=== PATIENT | female | born 1935 | race Caucasian/White ===

== ENCOUNTER 2019-09-16 03:04 | Inpatient (IN) | payer MEDICARE, MEDICAID ==
[~2019-09-16] VITALS: Ht 160 cm; Wt 90.9 kg
[2019-09-16] MEDS ORDERED: normal saline 1000ML IV soln IVB ONE (03:10)
[2019-09-16 03:32] LABS: PARTIAL THROMBOPLASTIN TIME 22 SECONDS (22-32)
[2019-09-16 03:35] LABS: ALANINE AMINOTRANSFERASE 14 U/L (12-78); ALBUMIN 3.4 G/DL (3.4-5.0); ALBUMIN/GLOBULIN RATIO 0.9 (1.1-1.5); ALKALINE PHOSPHATASE 107 IU/L (46-116); ANION GAP 11 (8-16); ASPARTATE AMINO TRANSFERASE 14 U/L (10-37); BILIRUBIN,TOTAL 0.3 MG/DL (0.1-1.0); BLOOD UREA NITROGEN 13 MG/DL (7-18); BUN/CREATININE RATIO 14.6 (6.6-38.0); CALCIUM 8.8 MG/DL (8.5-10.1); CHLORIDE 101 MMOL/L (99-107); CREATININE 0.89 MG/DL (0.40-0.90); GLUCOSE 177 MG/DL (70-104); SODIUM 136 MMOL/L (135-145); TOTAL CARBON DIOXIDE 24.2 MMOL/L (24-32); TOTAL PROTEIN 7.1 G/DL (6.4-8.2); eGFR 61 ML/MIN
[2019-09-16 03:38] LABS: ETHANOL < 0.010 GM/DL (0.0-0.010); TROPONIN I < 0.04 NG/ML (0.0-0.05)
[2019-09-16 03:43] LABS: CLARITY,URINE CLEAR (Clear); COLOR,URINE YELLOW (Yellow); GLUCOSE, URINE NEGATIVE (Neg); KETONES,URINE NEGATIVE (Neg); LEUKOCYTE ESTERASE ,URINE NEGATIVE (Neg); NITRITES, URINE NEGATIVE (Neg); OCCULT BLOOD,URINE NEGATIVE (Neg); PROTEIN,URINE NEGATIVE (Neg); UROBILINOGEN,URINE 0.2 E.U/dL (0.2-1.0)
[2019-09-16 03:44] LABS: BASOPHILS # (AUTO) 0.1 X10'3 (0-0.2); BASOPHILS % (AUTO) 0.5 % (0-1); EOSINOPHILS # (AUTO) 0.4 X10'3 (0-0.9); HEMATOCRIT 41.2 % (35.0-45.0); HEMOGLOBIN 13.1 g/dl (12.0-16.0); LYMPHOCYTES # (AUTO) 5.8 X10'3 (1.1-4.8); LYMPHOCYTES % (AUTO) 42.6 % (21-51); MEAN CORPUSCULAR HGB CONC 31.7 g/dL (33.0-36.5); MEAN CORPUSCULAR VOLUME 81.8 FL (78-98); MEAN PLATELET VOLUME 8.1 FL (7.4-10.4); MONOCYTES # (AUTO) 1.1 X10'3 (0-0.9); MONOCYTES % (AUTO) 8.2 % (2-12); NEUTROPHILS # (AUTO) 6.3 X10'3 (1.8-7.7); NEUTROPHILS % (AUTO) 45.7 % (42-75); PLATELET COUNT 363 X10'3 (140-440); RED BLOOD COUNT 5.03 X10'6 (4.20-5.60); RED CELL DISTRIBUTION WIDTH 14.9 % (11.5-14.5); WHITE BLOOD COUNT 13.7 X10'3 (4.5-11.0)
[2019-09-16 03:51] LABS: URINE AMPHETAMINE SCREEN NEGATIVE (Neg); URINE BARBITUATE SCREEN NEGATIVE (Neg); URINE BENZODIAZEPINES SCREEN NEGATIVE (Neg); URINE CANNABINOID SCREEN NEGATIVE (Neg); URINE COCAINE SCREEN NEGATIVE (Neg); URINE METHADONE SCREEN NEGATIVE (Neg); URINE OPIATE SCREEN NEGATIVE (Neg); URINE PHENCYCLIDINE SCREEN NEGATIVE (Neg)
[2019-09-16 03:56] LABS: LACTIC SEPSIS 3.2 MMOL/L (0.4-2.0)
[2019-09-16 03:59] LABS: AMMONIA < 10 UMOL/L (11-32)
[2019-09-16 04:07] LABS: UA COLLECTION TYPE STRAIGHT CATH
[2019-09-16] MEDS ORDERED: normal saline 1000ML IV soln IV ONE (04:10)
--- NOTE | 2019-09-16 04:20 | NUR ---
verified fluid of 3 Liters with MD and he stated he wants 3 L NS.
[2019-09-16] MEDS ORDERED: INSU100I31 SQ (04:31)
[2019-09-16] MEDS ORDERED: HUM7525 SQ (04:31)
[2019-09-16] MEDS ORDERED: DOXY-135 PO (04:31)
[2019-09-16] MEDS ORDERED: ENAL20TA75 PO (04:31)
[2019-09-16] MEDS ORDERED: AMLO-94 PO (04:31)
[2019-09-16] MEDS ORDERED: LEVO50TA8 PO (04:31)
[2019-09-16] MEDS ORDERED: EFF25T PO (04:31)
[2019-09-16] MEDS ORDERED: QUET25TA PO (04:31)
[2019-09-16] MEDS ORDERED: SIMV20TA PO (04:31)
[2019-09-16] MEDS ORDERED: MONT10TA26 PO (04:31)
[2019-09-16] MEDS ORDERED: METF500T PO (04:31)
[2019-09-16] MEDS ORDERED: MAGN400C PO (04:31)
--- NOTE | 2019-09-16 04:37 | NUR ---
PLACED PT ON BEDPAN
--- NOTE | 2019-09-16 05:19 | NUR ---
pt voided about 400 mls
[2019-09-16] MEDS ORDERED: ondansetron/PF 4mg/2ml inj IV PRN (06:05)
[2019-09-16] MEDS ORDERED: MESSAGE TO PHARMACY PO ONE (06:05)
[2019-09-16] MEDS ORDERED: mag hydrox/Alum hydrox/simeth 30ml oral suspension PO PRN (06:05)
[2019-09-16] MEDS ORDERED: dextrose 50%-water 50ml dispensing syringe IV PRN ×2 (06:05)
[2019-09-16] MEDS ORDERED: glucagon, human recombinant 1mg kit SUBCUT PRN (06:05)
[2019-09-16] MEDS ORDERED: magnesium hydroxide 30ml (MOM) UD suspension PO PRN (06:05)
[2019-09-16] MEDS ORDERED: acetaminophen 325mg tablet PO PRN (06:05)
[2019-09-16] MEDS ORDERED: dextrose ORAL solution 15 GM/59 ML bottle PO PRN ×2 (06:05)
[2019-09-16] MEDS: normal saline 1000ml 1,000 ML IV SCH (06:31)
[2019-09-16 06:56] LABS: HEMOGLOBIN A1C 6.8 % (4.5-6.2)
[2019-09-16 07:30] VITALS: BP 129/55
--- NOTE | 2019-09-16 07:30 | NUR ---
Patient in room [facility]. I have received report from DENITA VALENZUELA and had the opportunity to ask questions and assume patient care.
[2019-09-16] MEDS: levoTHYROXINE 25mcg tablet PO SCH (08:00)
[2019-09-16] MEDS: montelukast 10mg tablet PO SCH (08:00)
[2019-09-16] MEDS: heparin, porcine 5000 units/ml vial SQ SCH ×2 (08:01→20:04)
--- NOTE | 2019-09-16 09:45 | NUR ---
Notified NICOLAS Warner, of [facility] report pt had 4-beat run PVCs.
--- NOTE | 2019-09-16 10:00 | NUR ---
Problems reprioritized. Patient report given, questions answered & plan of care reviewed with BUFFY VALENZUELA.
[2019-09-16 12:03] VITALS: BP 138/66
[2019-09-16] MEDS ORDERED: AMLO10TA13 PO (13:20)
[2019-09-16] MEDS: insulin Lispro (HumaLOG) vial - multi-dose SQ SCH ×3 (14:00→21:20)
[2019-09-16 18:00] VITALS: BP 103/68
--- NOTE | 2019-09-16 19:55 | NUR ---
pt is unable to answer admit questions. Addendum: 09/16/19 at 6 by Max Ronquillo RN Amended: Links added.
[2019-09-16] MEDS: atorvastatin 20mg tablet PO SCH (20:04)
[2019-09-16] MEDS: venlafaxine XR 75mg capsule (Q24H) PO SCH (20:04)
[2019-09-17] VITALS: BP 142/75
[2019-09-17] MEDS: normal saline 1000ml 1,000 ML IV SCH ×2 (02:49→22:03)
[2019-09-17 04:55] LABS: BASOPHILS # (AUTO) 0.1 X10'3 (0-0.2); BASOPHILS % (AUTO) 0.5 % (0-1); EOSINOPHILS # (AUTO) 0.2 X10'3 (0-0.9); EOSINOPHILS % (AUTO) 2.5 % (0-6); HEMATOCRIT 35.9 % (35.0-45.0); HEMOGLOBIN 11.5 g/dl (12.0-16.0); LYMPHOCYTES # (AUTO) 3.8 X10'3 (1.1-4.8); LYMPHOCYTES % (AUTO) 38.1 % (21-51); MEAN CORPUSCULAR HEMOGLOBIN 26.5 PG (27.0-31.0); MEAN CORPUSCULAR VOLUME 82.6 FL (78-98); MEAN PLATELET VOLUME 7.7 FL (7.4-10.4); MONOCYTES # (AUTO) 0.9 X10'3 (0-0.9); MONOCYTES % (AUTO) 8.7 % (2-12); NEUTROPHILS % (AUTO) 50.2 % (42-75); PLATELET COUNT 343 X10'3 (140-440); RED BLOOD COUNT 4.34 X10'6 (4.20-5.60); WHITE BLOOD COUNT 9.9 X10'3 (4.5-11.0)
[2019-09-17 05:05] LABS: ALANINE AMINOTRANSFERASE 11 U/L (12-78); ALBUMIN 2.9 G/DL (3.4-5.0); ALBUMIN/GLOBULIN RATIO 0.9 (1.1-1.5); ALKALINE PHOSPHATASE 80 IU/L (46-116); ANION GAP 6 (8-16); ASPARTATE AMINO TRANSFERASE 13 U/L (10-37); BILIRUBIN,TOTAL 0.3 MG/DL (0.1-1.0); BLOOD UREA NITROGEN 6 MG/DL (7-18); CHLORIDE 107 MMOL/L (99-107); CREATININE 0.75 MG/DL (0.40-0.90); GLUCOSE 167 MG/DL (70-104); SODIUM 141 MMOL/L (135-145); eGFR 74 ML/MIN
--- NOTE | 2019-09-17 06:38 | NUR ---
Problems reprioritized. Patient report given, questions answered & plan of care reviewed with NICOLAS Kenyon.
[2019-09-17 07:00] VITALS: BP 147/69
[2019-09-17] MEDS: montelukast 10mg tablet PO SCH (08:09)
[2019-09-17] MEDS: heparin, porcine 5000 units/ml vial SQ SCH ×2 (08:10→20:38)
[2019-09-17] MEDS: levoTHYROXINE 25mcg tablet PO SCH (08:10)
[2019-09-17] MEDS: insulin Lispro (HumaLOG) vial - multi-dose SQ SCH ×3 (09:29→19:31)
--- NOTE | 2019-09-17 09:56 | NUR ---
DM consult: Pt with A1c 6.8%, DM education not warranted at this time. Will continue to follow. Addendum: 09/17/19 at [address] Amended: Links added.
[2019-09-17 11:00] VITALS: BP 147/69
[2019-09-17 18:00] VITALS: BP 160/55
--- NOTE | 2019-09-17 18:47 | NUR ---
Problems reprioritized. Patient report given, questions answered & plan of care reviewed with Prudence RN.
[2019-09-17] MEDS: atorvastatin 20mg tablet PO SCH (20:38)
[2019-09-17] MEDS: venlafaxine XR 75mg capsule (Q24H) PO SCH (20:38)
[2019-09-17] MEDS ORDERED: insulin glargine (Lantus) pen - multi-dose SQ SCH (23:00)
[2019-09-18 05:13] LABS: BASOPHILS # (AUTO) 0.1 X10'3 (0-0.2); BASOPHILS % (AUTO) 0.5 % (0-1); EOSINOPHILS # (AUTO) 0.3 X10'3 (0-0.9); EOSINOPHILS % (AUTO) 3.2 % (0-6); HEMATOCRIT 37.8 % (35.0-45.0); HEMOGLOBIN 12.4 g/dl (12.0-16.0); LYMPHOCYTES # (AUTO) 3.5 X10'3 (1.1-4.8); LYMPHOCYTES % (AUTO) 34.2 % (21-51); MEAN CORPUSCULAR HEMOGLOBIN 26.6 PG (27.0-31.0); MEAN CORPUSCULAR HGB CONC 32.8 g/dL (33.0-36.5); MEAN PLATELET VOLUME 7.9 FL (7.4-10.4); MONOCYTES # (AUTO) 0.9 X10'3 (0-0.9); MONOCYTES % (AUTO) 8.3 % (2-12); NEUTROPHILS # (AUTO) 5.6 X10'3 (1.8-7.7); NEUTROPHILS % (AUTO) 53.8 % (42-75); PLATELET COUNT 358 X10'3 (140-440); RED BLOOD COUNT 4.66 X10'6 (4.20-5.60); RED CELL DISTRIBUTION WIDTH 15.1 % (11.5-14.5); WHITE BLOOD COUNT 10.4 X10'3 (4.5-11.0)
[2019-09-18 05:22] LABS: ALANINE AMINOTRANSFERASE 15 U/L (12-78); ALBUMIN 3.2 G/DL (3.4-5.0); ALBUMIN/GLOBULIN RATIO 0.9 (1.1-1.5); ALKALINE PHOSPHATASE 89 IU/L (46-116); ANION GAP 6 (8-16); ASPARTATE AMINO TRANSFERASE 15 U/L (10-37); BILIRUBIN,TOTAL 0.3 MG/DL (0.1-1.0); BLOOD UREA NITROGEN 8 MG/DL (7-18); BUN/CREATININE RATIO 11.1 (6.6-38.0); CALCIUM 8.4 MG/DL (8.5-10.1); CHLORIDE 103 MMOL/L (99-107); CREATININE 0.72 MG/DL (0.40-0.90); GLUCOSE 184 MG/DL (70-104); POTASSIUM 3.5 MMOL/L (3.5-5.1); SODIUM 136 MMOL/L (135-145); TOTAL CARBON DIOXIDE 27.4 MMOL/L (24-32); TOTAL PROTEIN 6.6 G/DL (6.4-8.2); eGFR 78 ML/MIN
--- NOTE | 2019-09-18 06:07 | NUR ---
Patient in room [facility]. I have received report from Kayla VALENZUELA and had the opportunity to ask questions and assume patient care.
--- NOTE | 2019-09-18 06:31 | NUR ---
Problems reprioritized. Patient report given, questions answered & plan of care reviewed with Linda VALENZUELA.
[2019-09-18 07:30] VITALS: BP 171/79
[2019-09-18] MEDS: levoTHYROXINE 25mcg tablet PO SCH (07:36)
[2019-09-18] MEDS: montelukast 10mg tablet PO SCH (07:36)
[2019-09-18] MEDS: heparin, porcine 5000 units/ml vial SQ SCH (07:36)
[2019-09-18] MEDS: insulin Lispro (HumaLOG) vial - multi-dose SQ SCH (08:34)
--- NOTE | 2019-09-18 08:44 | NUR ---
Son n law called to check on patient. Patient will be going home with him on discharge. Patient was informed that patient is stable, awake and eating.
[2019-09-18] MEDS ORDERED: INSU100I31 SQ (10:39)
[2019-09-18] MEDS ORDERED: QUET25TA PO (10:39)
[2019-09-18 11:53] VITALS: BP 161/94
--- NOTE | 2019-09-18 12:01 | NUR ---
Paper work completed with patient, will review with patients family members. Patient waiting on a ride.
--- NOTE | 2019-09-18 12:18 | NUR ---
Notified Dr. Velázquez that patients BS currently is 285, order to go forward with discharge home with BS of 285.
--- NOTE | 2019-09-18 12:23 | NUR ---
Talked with Clara patients daughter on the phone, reviewed discharge with Clara. Clara is aware patients BS is 285 and agrees to treat when patient is home, Clara agrees to do so. Patient currently doesn't have an IV, all belongings are with patient; clothing. Patient is stable and steady on her feet. She has walked the [address] ways independently and tolerated well. VS stable. No distress currently.
[2019-09-18] MEDS ORDERED: insulin glargine (Lantus) pen - multi-dose SQ SCH (21:00)
== END 2019-09-18 13:19 | disposition home or self-care (01) | DRG 884 ==
LOC: ER 03:05 → ED HOLD 06:03 → UNDOADMIN 06:32 → ED HOLD 06:32 → SUR 3N 08:34 → ED HOLD 08:34 → SUR 3N 09-17 18:53
PROVIDERS: ADMIT Internal Medicine; ATTEND Internal Medicine
DX: F03.90 Unspecified dementia, unspecified severity, without behavioral disturbance, psychotic disturbance, mood disturbance, and anxiety (principal); E87.2 Acidosis; R41.82 Altered mental status, unspecified; E11.649 Type 2 diabetes mellitus with hypoglycemia without coma; T38.3X5A Adverse effect of insulin and oral hypoglycemic [antidiabetic] drugs, initial encounter; F41.9 Anxiety disorder, unspecified; H91.93 Unspecified hearing loss, bilateral; Z79.899 Other long term (current) drug therapy; Z79.4 Long term (current) use of insulin; Y92.89 Other specified places as the place of occurrence of the external cause
CPT/HCPCS: 36415; 70450; 71045; 80053; 80305; 80320; 81003; 82140; 82948; 83036; 83605; 84443; 84484; 85025; 85610; 85730; 87040; 87081; 93005; 96360; 97116; 97161; 97530; 99285; G0378; J1644; J1815; J7030

== ENCOUNTER 2019-11-19 03:17 | Emergency (ER) | payer MEDICARE, MEDICAID ==
[~2019-11-19] VITALS: Ht 165.1 cm; Wt 81.8 kg
[~2019-11-19 03:17] MED LIST: AMLO10TA13 PO; ENAL20TA75 PO; INSU100I31 SQ; LEVO50TA8 PO; MAGN400C PO; METF500T PO; MONT10TA26 PO; QUET25TA PO; SIMV20TA PO; VENL25TA48 PO
[2019-11-19] MEDS ORDERED: LIDOcaine 2% 10ml TOPICAL JELLY (Urojet) TP ONE (03:25)
[2019-11-19 03:58] LABS: CLARITY,URINE CLEAR (Clear); COLOR,URINE YELLOW (Yellow); GLUCOSE, URINE NEGATIVE (Neg); KETONES,URINE NEGATIVE (Neg); LEUKOCYTE ESTERASE ,URINE NEGATIVE (Neg); NITRITES, URINE NEGATIVE (Neg); OCCULT BLOOD,URINE NEGATIVE (Neg); PH,URINE 5.5 (4.8-8.0); PROTEIN,URINE NEGATIVE (Neg); UA COLLECTION TYPE STRAIGHT CATH; UROBILINOGEN,URINE 0.2 E.U/dL (0.2-1.0)
[2019-11-19] MEDS ORDERED: ENAL20TA PO (04:02)
[2019-11-19] MEDS ORDERED: MUPI22OI30 TOP (04:02)
[2019-11-19] MEDS ORDERED: VENL75CA61 PO (04:02)
[2019-11-19] MEDS ORDERED: METF-950 PO (04:02)
[2019-11-19] MEDS ORDERED: MAGN400T28 PO (04:02)
[2019-11-19] MEDS ORDERED: SIMV-42 PO (04:02)
[2019-11-19] MEDS ORDERED: DOXY-224 PO (04:02)
[2019-11-19 04:03] LABS: BASOPHILS # (AUTO) 0.1 X10'3 (0-0.2); BASOPHILS % (AUTO) 0.6 % (0-1); EOSINOPHILS # (AUTO) 0.2 X10'3 (0-0.9); EOSINOPHILS % (AUTO) 1.6 % (0-6); HEMATOCRIT 39.7 % (35.0-45.0); HEMOGLOBIN 12.6 g/dl (12.0-16.0); LYMPHOCYTES # (AUTO) 2.9 X10'3 (1.1-4.8); LYMPHOCYTES % (AUTO) 24.2 % (21-51); MEAN CORPUSCULAR HEMOGLOBIN 26.2 PG (27.0-31.0); MEAN CORPUSCULAR HGB CONC 31.7 g/dL (33.0-36.5); MEAN CORPUSCULAR VOLUME 82.6 FL (78-98); MEAN PLATELET VOLUME 7.8 FL (7.4-10.4); MONOCYTES # (AUTO) 0.8 X10'3 (0-0.9); MONOCYTES % (AUTO) 6.8 % (2-12); NEUTROPHILS % (AUTO) 66.8 % (42-75); PLATELET COUNT 403 X10'3 (140-440); RED BLOOD COUNT 4.81 X10'6 (4.20-5.60); RED CELL DISTRIBUTION WIDTH 14.8 % (11.5-14.5)
[2019-11-19] MEDS ORDERED: INSU100I31 SQ (04:04)
[2019-11-19 04:27] LABS: ALANINE AMINOTRANSFERASE 12 U/L (12-78); ALBUMIN 3.4 G/DL (3.4-5.0); ALBUMIN/GLOBULIN RATIO 0.9 (1.1-1.5); ALKALINE PHOSPHATASE 99 IU/L (46-116); ANION GAP 12 (8-16); ASPARTATE AMINO TRANSFERASE 15 U/L (10-37); BILIRUBIN,TOTAL 0.3 MG/DL (0.1-1.0); BLOOD UREA NITROGEN 17 MG/DL (7-18); BUN/CREATININE RATIO 19.8 (6.6-38.0); CALCIUM 8.7 MG/DL (8.5-10.1); CHLORIDE 95 MMOL/L (99-107); CREATININE 0.86 MG/DL (0.40-0.90); ETHANOL < 0.010 GM/DL (0.0-0.010); GLUCOSE 230 MG/DL (70-104); POTASSIUM 4.4 MMOL/L (3.5-5.1); SODIUM 130 MMOL/L (135-145); TOTAL CARBON DIOXIDE 23.5 MMOL/L (24-32); TOTAL PROTEIN 7.4 G/DL (6.4-8.2); eGFR 63 ML/MIN
[2019-11-19] MEDS ORDERED: MONT10TA26 PO (04:37)
[2019-11-19 04:52] LABS: URINE AMPHETAMINE SCREEN NEGATIVE (Neg); URINE BARBITUATE SCREEN NEGATIVE (Neg); URINE BENZODIAZEPINES SCREEN NEGATIVE (Neg); URINE CANNABINOID SCREEN NEGATIVE (Neg); URINE COCAINE SCREEN NEGATIVE (Neg); URINE METHADONE SCREEN NEGATIVE (Neg); URINE OPIATE SCREEN NEGATIVE (Neg); URINE PHENCYCLIDINE SCREEN NEGATIVE (Neg)
--- NOTE | 2019-11-19 04:59 | NUR ---
Called Bethany (son in law) @ [phone] for potential ride home. Unable to leave a message.
--- NOTE | 2019-11-19 06:19 | NUR ---
Multiple attempts made to contact Bethany with no success.
[2019-11-19 07:53] VITALS: BP 145/64
== END 2019-11-19 08:10 | disposition home or self-care (01) ==
LOC: ER 03:17
DX: G40.909 Epilepsy, unspecified, not intractable, without status epilepticus (principal); E11.65 Type 2 diabetes mellitus with hyperglycemia; Z79.4 Long term (current) use of insulin; Z79.899 Other long term (current) drug therapy
CPT/HCPCS: 36415; 71045; 80053; 80305; 80320; 81003; 83605; 83880; 84145; 84443; 84484; 85025; 87040; 93005; 99285

== ENCOUNTER 2020-08-14 09:50 | Outpatient (CLI) | payer MEDICARE, MEDICAID ==
[~2020-08-14 09:50] MED LIST changes: +DOXY-224 PO; +ENAL-79 PO; -ENAL20TA75 PO; -MAGN400C PO; +MAGN400T28 PO; +METF-950 PO; -METF500T PO; -MONT10TA26 PO; +MONT10TA32 PO; +MUPI22OI30 TOP; -QUET25TA PO; +SIMV-42 PO; -SIMV20TA PO; -VENL25TA48 PO; +VENL75CA61 PO
== END 2020-08-14 23:59 | disposition home or self-care (01) ==
LOC: RAD 09:50
PROVIDERS: ATTEND Psychiatry & Neurology Neurology
DX: R40.4 Transient alteration of awareness (principal)
CPT/HCPCS: 95816

== ENCOUNTER 2020-09-09 13:00 | Emergency (ER) | payer MEDICARE, MEDICAID ==
[~2020-09-09] VITALS: Ht 167.6 cm; Wt 86.4 kg
[2020-09-09 14:07] LABS: BASOPHILS # (AUTO) 0.1 X10'3 (0-0.2); BASOPHILS % (AUTO) 0.8 % (0-1); EOSINOPHILS # (AUTO) 0.2 X10'3 (0-0.9); EOSINOPHILS % (AUTO) 3.2 % (0-6); HEMATOCRIT 38.8 % (35.0-45.0); HEMOGLOBIN 12.6 g/dl (12.0-16.0); LYMPHOCYTES # (AUTO) 1.2 X10'3 (1.1-4.8); LYMPHOCYTES % (AUTO) 17.3 % (21-51); MEAN CORPUSCULAR HGB CONC 32.5 g/dL (33.0-36.5); MEAN CORPUSCULAR VOLUME 80.2 FL (78-98); MEAN PLATELET VOLUME 6.9 FL (7.4-10.4); MONOCYTES # (AUTO) 0.9 X10'3 (0-0.9); MONOCYTES % (AUTO) 12.5 % (2-12); NEUTROPHILS # (AUTO) 4.8 X10'3 (1.8-7.7); NEUTROPHILS % (AUTO) 66.2 % (42-75); PLATELET COUNT 311 X10'3 (140-440); RED BLOOD COUNT 4.84 X10'6 (4.20-5.60); RED CELL DISTRIBUTION WIDTH 14.4 % (11.5-14.5); WHITE BLOOD COUNT 7.2 X10'3 (4.5-11.0)
[2020-09-09 14:10] LABS: ALANINE AMINOTRANSFERASE 22 U/L (12-78); ALBUMIN 3.4 G/DL (3.4-5.0); ALKALINE PHOSPHATASE 121 IU/L (46-116); ANION GAP 6 (8-16); ASPARTATE AMINO TRANSFERASE 14 U/L (10-37); BILIRUBIN,TOTAL 0.3 MG/DL (0.1-1.0); BLOOD UREA NITROGEN 12 MG/DL (7-18); BUN/CREATININE RATIO 12.6 (6.6-38.0); CALCIUM 8.5 MG/DL (8.5-10.1); CHLORIDE 94 MMOL/L (99-107); CREATININE 0.95 MG/DL (0.40-0.90); GLUCOSE 223 MG/DL (70-104); POTASSIUM 4.7 MMOL/L (3.5-5.1); SODIUM 127 MMOL/L (135-145); TOTAL CARBON DIOXIDE 27.1 MMOL/L (24-32); TOTAL PROTEIN 6.8 G/DL (6.4-8.2); eGFR 56 ML/MIN
[2020-09-09 14:15] LABS: TROPONIN I < 0.04 NG/ML (0.0-0.05)
[2020-09-09 14:38] LABS: TOTAL CELLS COUNTED 100
[2020-09-09 14:39] LABS: ELLIPTOCYTES FEW; PLATELET ESTIMATE NORMAL; STOMATOCYTES FEW; TEAR DROP CELLS FEW
[2020-09-09] MEDS ORDERED: ondansetron 4mg rapidly disintigrating tab PO ONE (14:45)
[2020-09-09] MEDS ORDERED: HYDROcodone/acetaminophen 5mg/325mg tablet PO ONE (14:45)
[2020-09-09] MEDS ORDERED: ONDA4TAB6 PO (14:50)
[2020-09-09] MEDS ORDERED: HYDR-3965 PO (14:50)
[2020-09-09 16:31] VITALS: BP 138/60
== END 2020-09-09 16:33 | disposition home or self-care (01) ==
LOC: ER 13:00
DX: S82.831A Other fracture of upper and lower end of right fibula, initial encounter for closed fracture (principal); E11.9 Type 2 diabetes mellitus without complications; F03.90 Unspecified dementia, unspecified severity, without behavioral disturbance, psychotic disturbance, mood disturbance, and anxiety; Z79.2 Long term (current) use of antibiotics; Z79.4 Long term (current) use of insulin; Z79.899 Other long term (current) drug therapy; W18.2XXA Fall in (into) shower or empty bathtub, initial encounter; Z91.81 History of falling; Y93.89 Activity, other specified; Y92.89 Other specified places as the place of occurrence of the external cause; Y99.8 Other external cause status
CPT/HCPCS: 29515; 70450; 72125; 72170; 73564; 73610; 80053; 84484; 85007; 85025; 99285

== ENCOUNTER 2020-09-10 18:48 | Emergency (ER) | payer MEDICARE, MEDICAID ==
[~2020-09-10] VITALS: Ht 157.5 cm; Wt 89.5 kg
[~2020-09-10 18:48] MED LIST changes: +HYDR-3965 PO; +ONDA4TAB6 PO
--- NOTE | 2020-09-10 20:41 | NUR ---
PT NEEDS TO URINATE - WICK CATH PLACED
--- NOTE | 2020-09-10 21:52 | NUR ---
Family was concerned that the patient had to urinate and was unable, a wick is in place and I encouraged her just to pee.
--- NOTE | 2020-09-10 22:40 | NUR ---
Patient with Dr. Sanches.
[2020-09-10 23:16] LABS: CLARITY,URINE CLEAR (Clear); COLOR,URINE STRAW (Yellow); GLUCOSE, URINE NEGATIVE (Neg); KETONES,URINE NEGATIVE (Neg); LEUKOCYTE ESTERASE ,URINE NEGATIVE (Neg); NITRITES, URINE NEGATIVE (Neg); OCCULT BLOOD,URINE NEGATIVE (Neg); PH,URINE 5.5 (4.8-8.0); PROTEIN,URINE NEGATIVE (Neg); UROBILINOGEN,URINE 0.2 E.U/dL (0.2-1.0)
[2020-09-10 23:26] LABS: BASOPHILS # (AUTO) 0.1 X10'3 (0-0.2); BASOPHILS % (AUTO) 0.6 % (0-1); EOSINOPHILS # (AUTO) 0.2 X10'3 (0-0.9); EOSINOPHILS % (AUTO) 2.3 % (0-6); HEMATOCRIT 37.6 % (35.0-45.0); HEMOGLOBIN 12.2 g/dl (12.0-16.0); LYMPHOCYTES # (AUTO) 1.9 X10'3 (1.1-4.8); MEAN CORPUSCULAR HGB CONC 32.5 g/dL (33.0-36.5); MEAN PLATELET VOLUME 6.9 FL (7.4-10.4); MONOCYTES % (AUTO) 11.6 % (2-12); NEUTROPHILS # (AUTO) 5.8 X10'3 (1.8-7.7); NEUTROPHILS % (AUTO) 64.5 % (42-75); PLATELET COUNT 353 X10'3 (140-440); RED BLOOD COUNT 4.69 X10'6 (4.20-5.60); RED CELL DISTRIBUTION WIDTH 14.2 % (11.5-14.5)
[2020-09-10 23:27] LABS: ALANINE AMINOTRANSFERASE 16 U/L (12-78); ALBUMIN 3.3 G/DL (3.4-5.0); ALBUMIN/GLOBULIN RATIO 0.9 (1.1-1.5); ALKALINE PHOSPHATASE 129 IU/L (46-116); ANION GAP 8 (8-16); ASPARTATE AMINO TRANSFERASE 14 U/L (10-37); BILIRUBIN,TOTAL 0.3 MG/DL (0.1-1.0); BLOOD UREA NITROGEN 15 MG/DL (7-18); BUN/CREATININE RATIO 18.3 (6.6-38.0); CALCIUM 8.7 MG/DL (8.5-10.1); CHLORIDE 95 MMOL/L (99-107); CREATININE 0.82 MG/DL (0.40-0.90); GLUCOSE 120 MG/DL (70-104); POTASSIUM 5.1 MMOL/L (3.5-5.1); SODIUM 131 MMOL/L (135-145); TOTAL CARBON DIOXIDE 28.1 MMOL/L (24-32); TOTAL PROTEIN 6.9 G/DL (6.4-8.2); eGFR 67 ML/MIN
[2020-09-10 23:46] LABS: UA COLLECTION TYPE STRAIGHT CATH
[2020-09-11 00:59] VITALS: BP 113/47
== END 2020-09-11 01:02 | disposition home or self-care (01) ==
LOC: ER 18:48
DX: R56.9 Unspecified convulsions (principal); R41.0 Disorientation, unspecified; F03.90 Unspecified dementia, unspecified severity, without behavioral disturbance, psychotic disturbance, mood disturbance, and anxiety; E11.9 Type 2 diabetes mellitus without complications; Z79.4 Long term (current) use of insulin; Z79.2 Long term (current) use of antibiotics; Z79.899 Other long term (current) drug therapy; Z87.81 Personal history of (healed) traumatic fracture
CPT/HCPCS: 36415; 80053; 81003; 85025; 99284

== ENCOUNTER 2021-02-10 22:45 | Emergency (ER) | payer MEDICARE, MEDICAID ==
[~2021-02-10] VITALS: Ht 165.1 cm; Wt 145.0 kg
[~2021-02-10 22:45] MED LIST changes: -HYDR-3965 PO; -MAGN400T28 PO; +MAGN400T56 PO
[2021-02-10 23:38] LABS: BASOPHILS # (AUTO) 0.1 X10'3 (0-0.2); BASOPHILS % (AUTO) 0.4 % (0-1); EOSINOPHILS # (AUTO) 0.2 X10'3 (0-0.9); EOSINOPHILS % (AUTO) 1.9 % (0-6); HEMATOCRIT 42.6 % (35.0-45.0); HEMOGLOBIN 13.5 g/dl (12.0-16.0); LYMPHOCYTES # (AUTO) 2.4 X10'3 (1.1-4.8); LYMPHOCYTES % (AUTO) 19.1 % (21-51); MEAN CORPUSCULAR HEMOGLOBIN 25.9 PG (27.0-31.0); MEAN CORPUSCULAR HGB CONC 31.6 g/dL (33.0-36.5); MEAN CORPUSCULAR VOLUME 81.7 FL (78-98); MONOCYTES # (AUTO) 1.2 X10'3 (0-0.9); MONOCYTES % (AUTO) 9.9 % (2-12); NEUTROPHILS # (AUTO) 8.7 X10'3 (1.8-7.7); NEUTROPHILS % (AUTO) 68.7 % (42-75); PLATELET COUNT 349 X10'3 (140-440); RED BLOOD COUNT 5.21 X10'6 (4.20-5.60); RED CELL DISTRIBUTION WIDTH 15.1 % (11.5-14.5); WHITE BLOOD COUNT 12.6 X10'3 (4.5-11.0)
[2021-02-10 23:50] LABS: ALANINE AMINOTRANSFERASE 20 U/L (12-78); ALBUMIN/GLOBULIN RATIO 1.1 (1.1-1.5); ALKALINE PHOSPHATASE 128 IU/L (46-116); ANION GAP 9 (8-16); ASPARTATE AMINO TRANSFERASE 14 U/L (10-37); BILIRUBIN,TOTAL 0.3 MG/DL (0.1-1.0); BLOOD UREA NITROGEN 12 MG/DL (7-18); BUN/CREATININE RATIO 14.1 (6.6-38.0); CALCIUM 9.7 MG/DL (8.5-10.1); CHLORIDE 94 MMOL/L (99-107); CREATININE 0.85 MG/DL (0.40-0.90); GLUCOSE 95 MG/DL (70-104); POTASSIUM 3.6 MMOL/L (3.5-5.1); SODIUM 128 MMOL/L (135-145); TOTAL PROTEIN 7.6 G/DL (6.4-8.2); eGFR 64 ML/MIN
[2021-02-11 00:17] LABS: CLARITY,URINE CLEAR (Clear); COLOR,URINE YELLOW (Yellow); GLUCOSE, URINE NEGATIVE (Neg); KETONES,URINE NEGATIVE (Neg); LEUKOCYTE ESTERASE ,URINE NEGATIVE (Neg); NITRITES, URINE NEGATIVE (Neg); OCCULT BLOOD,URINE NEGATIVE (Neg); PH,URINE 6.5 (4.8-8.0); PROTEIN,URINE NEGATIVE (Neg); UA COLLECTION TYPE NON-SPECIFIED; UROBILINOGEN,URINE 0.2 E.U/dL (0.2-1.0)
[2021-02-11 07:35] VITALS: BP 136/59
--- NOTE | 2021-02-11 08:32 | NUR ---
Spoke with Son Suzy re; insulin admin and importance of proper well balanced diet
--- NOTE | 2021-02-11 08:51 | NUR ---
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
== END 2021-02-11 10:07 | disposition home or self-care (01) ==
LOC: ER 22:46
DX: S40.021A Contusion of right upper arm, initial encounter (principal); E11.649 Type 2 diabetes mellitus with hypoglycemia without coma; F03.91 Unspecified dementia, unspecified severity, with behavioral disturbance; Z79.2 Long term (current) use of antibiotics; Z79.4 Long term (current) use of insulin; Z79.899 Other long term (current) drug therapy; W06.XXXA Fall from bed, initial encounter; Z91.81 History of falling; Y93.89 Activity, other specified; Y92.89 Other specified places as the place of occurrence of the external cause; Y99.8 Other external cause status
CPT/HCPCS: 36415; 70450; 71045; 80053; 81003; 82948; 83605; 85025; 87040; 93005; 99285

== ENCOUNTER 2021-06-11 08:09 | Day surgery (SDC) | payer MEDICARE, MEDICAID ==
[~2021-06-11] VITALS: Ht 157.5 cm; Wt 89.5 kg
[~2021-06-11 08:09] MED LIST changes: +METF-1203 PO; -METF-950 PO; +MONT-40 PO; -MONT10TA32 PO; -MUPI22OI30 TOP; -ONDA4TAB6 PO
[2021-06-11 08:30] VITALS: BP 142/74
[2021-06-11] MEDS ORDERED: fentaNYL/PF 50MCG/1 ML 2ML syringe ONE (08:56)
[2021-06-11] MEDS ORDERED: diphenhydrAMINE 50 mg/ml inj ONE (08:57)
[2021-06-11] MEDS ORDERED: LIDOcaine Viscous 15ml cup ONE (08:57)
[2021-06-11] MEDS ORDERED: MIDAZolam 1 MG/ML 5ML VIAL ONE (08:57)
[2021-06-11 11:51] VITALS: BP 136/74
[2021-06-11 12:01] VITALS: BP 132/62
[2021-06-11 12:11] VITALS: BP 129/75
[2021-06-11 12:21] VITALS: BP 116/60
== END 2021-06-11 12:30 | disposition home or self-care (01) ==
LOC: GI LAB 08:09
PROVIDERS: ATTEND Internal Medicine Gastroenterology
DX: R10.84 Generalized abdominal pain (principal); K52.9 Noninfective gastroenteritis and colitis, unspecified; R10.13 Epigastric pain; K29.50 Unspecified chronic gastritis without bleeding; K29.00 Acute gastritis without bleeding; B96.81 Helicobacter pylori [H. pylori] as the cause of diseases classified elsewhere; F03.90 Unspecified dementia, unspecified severity, without behavioral disturbance, psychotic disturbance, mood disturbance, and anxiety; E11.9 Type 2 diabetes mellitus without complications; I10 Essential (primary) hypertension; Z79.899 Other long term (current) drug therapy; Z79.4 Long term (current) use of insulin
CPT/HCPCS: 43239; 45380; 82948; 88305; 88313; 88342; G0500; J1200; J2250; J3010; J7040; Z7512; 99152; 99153; A4620

== ENCOUNTER 2021-06-26 21:08 | Inpatient (IN) | payer MEDICARE, MEDICAID ==
[~2021-06-26] VITALS: Ht 165.1 cm; Wt 75.2 kg
--- NOTE | 2021-06-26 21:56 | NUR ---
Pt brought in by EMS with multiple complaints per family.
[2021-06-26] MEDS ORDERED: normal saline 1000ML IV soln IVB ONE (22:20)
[2021-06-26 22:38] LABS: BASOPHILS # (AUTO) 0.1 X10'3 (0-0.2); BASOPHILS % (AUTO) 0.7 % (0-1); EOSINOPHILS # (AUTO) 0.1 X10'3 (0-0.9); EOSINOPHILS % (AUTO) 1.1 % (0-6); HEMOGLOBIN 13.3 g/dl (12.0-16.0); LYMPHOCYTES # (AUTO) 1.9 X10'3 (1.1-4.8); LYMPHOCYTES % (AUTO) 24.6 % (21-51); MEAN CORPUSCULAR HEMOGLOBIN 26.1 PG (27.0-31.0); MEAN CORPUSCULAR HGB CONC 32.3 g/dL (33.0-36.5); MEAN CORPUSCULAR VOLUME 80.6 FL (78-98); MEAN PLATELET VOLUME 7.2 FL (7.4-10.4); MONOCYTES # (AUTO) 0.9 X10'3 (0-0.9); NEUTROPHILS # (AUTO) 4.9 X10'3 (1.8-7.7); NEUTROPHILS % (AUTO) 62.6 % (42-75); PLATELET COUNT 342 X10'3 (140-440); RED BLOOD COUNT 5.08 X10'6 (4.20-5.60); RED CELL DISTRIBUTION WIDTH 15.8 % (11.5-14.5); WHITE BLOOD COUNT 7.9 X10'3 (4.5-11.0)
[2021-06-26 22:52] LABS: ALANINE AMINOTRANSFERASE 20 U/L (12-78); ALBUMIN 3.2 G/DL (3.4-5.0); ALKALINE PHOSPHATASE 90 IU/L (46-116); ANION GAP 8 (8-16); ASPARTATE AMINO TRANSFERASE 19 U/L (10-37); BILIRUBIN,TOTAL 0.4 MG/DL (0.1-1.0); BLOOD UREA NITROGEN 24 MG/DL (7-18); BUN/CREATININE RATIO 29.3 (6.6-38.0); CALCIUM 8.8 MG/DL (8.5-10.1); CHLORIDE 98 MMOL/L (99-107); CREATININE 0.82 MG/DL (0.40-0.90); GLUCOSE 156 MG/DL (70-104); POTASSIUM 3.6 MMOL/L (3.5-5.1); SODIUM 133 MMOL/L (135-145); TOTAL PROTEIN 6.3 G/DL (6.4-8.2); eGFR 66 ML/MIN
[2021-06-26 23:00] LABS: LIPASE < 50 U/L (73-393)
[2021-06-26 23:51] LABS: CLARITY,URINE SLIGHTLY CLOUDY (Clear); COLOR,URINE YELLOW (Yellow); GLUCOSE, URINE NEGATIVE (Neg); KETONES,URINE 15 mg/dl (Neg); LEUKOCYTE ESTERASE ,URINE NEGATIVE (Neg); NITRITES, URINE NEGATIVE (Neg); OCCULT BLOOD,URINE NEGATIVE (Neg); PH,URINE 5.5 (4.8-8.0); PROTEIN,URINE TRACE mg/dl (Neg); UROBILINOGEN,URINE 0.2 E.U/dL (0.2-1.0)
[2021-06-27 00:01] LABS: UA COLLECTION TYPE NON-SPECIFIED
[2021-06-27 00:04] LABS: BACTERIA,URINE FEW /HPF (Neg); MUCUS STRANDS FEW /LPF (Neg); RBC,URINE 0-2 /HPF (0-2); SQUAMOUS EPITHELIAL CELL,UR FEW /LPF (FEW)
[2021-06-27 00:05] LABS: HYALINE CASTS 0-3 /LPF (NEGATIVE)
[2021-06-27] MEDS: normal saline 1000ml 1,000 ML IV SCH (00:55)
[2021-06-27] MEDS ORDERED: magnesium 2GM in 50ml NS 50 ML IV PRN (00:55)
[2021-06-27] MEDS ORDERED: magnesium Cl slow-release 64mg tablet PO PRN (00:55)
[2021-06-27] MEDS ORDERED: magnesium 4gm in 100ml NS 100 ML IV PRN (00:55)
[2021-06-27] MEDS ORDERED: potassium CL 10mEq/100ml bag 100 ML IV PRN (00:55)
[2021-06-27] MEDS ORDERED: potassium Cl 20 mEq SR tablet PO PRN (00:55)
[2021-06-27] MEDS ORDERED: acetaminophen 325mg tablet PO PRN (00:55)
--- NOTE | 2021-06-27 03:46 | NUR ---
0320 Received report from Kristi VALENZUELA 0330 arrived via [employer] accompanied by Ambika, arrived with personal belongings- Night gown
[2021-06-27 03:51] VITALS: BP 107/69
--- NOTE | 2021-06-27 06:27 | NUR ---
Report given to Mago VALENZUELA
--- NOTE | 2021-06-27 06:31 | NUR ---
I agree with Travel nurse Tiffanie charting, and report given to Catrina
--- NOTE | 2021-06-27 06:33 | NUR ---
Patient in room [facility]. I have received report from NICOLAS Moreno and had the opportunity to ask questions and assume patient care.
[2021-06-27 07:00] VITALS: BP 136/61
[2021-06-27 07:32] LABS: MAGNESIUM 1.6 MG/DL (1.5-2.4); POTASSIUM 3.6 MMOL/L (3.5-5.1)
[2021-06-27] MEDS: CefTRIAXone/D5W-Rocephin 1gm 50 ML IV SCH (07:58)
[2021-06-27] MEDS: K and/or MAG REPLACEMENT MC SCH ×2 (08:00→19:31)
[2021-06-27 12:00] VITALS: BP 134/65
--- NOTE | 2021-06-27 13:18 | NUR ---
Patient in room [facility]. I have received report from Justine and had the opportunity to ask questions and assume patient care.
--- NOTE | 2021-06-27 13:24 | NUR ---
Initial: Pt admitted w/ failure to thrive, has reportedly become very weak and unable to eat or drink per EMR, though uncertain for what period of time. Pt appears WD/WN per ED note. Per MD note and TC discussion w/ RN, pt's family is likely wanting hospice/comfort care for pt. Pt seen by [facility] SUPERVISOR today and recommended Puree diet, has already been on Heart Healthy diet though recommend Regular given age and pt status. No edema noted, no reliable scaled wt hx in EMR Limited nutrition interventions at this time given pt refusing food and liquids and possible comfort measures. Will continue to monitor. Recs: 1. Continue Puree diet as tolerated per [facility]RI[facility] SUPERVISOR recs, liberalize to Regular 2. Bowel care per rx 3. Weekly wts 4. If pt refuses meals, consider TF if within POC Addendum: 06/27/21 at [address] Amended: Links added.
[2021-06-27 13:35] VITALS: BP 148/63
[2021-06-27] MEDS ORDERED: HUM7525 SQ (16:14)
[2021-06-27] MEDS ORDERED: DONE5TAB7 PO (16:14)
[2021-06-27] MEDS ORDERED: OMEP20CA16 PO (16:14)
[2021-06-27] MEDS ORDERED: METR-159 PO (16:18)
[2021-06-27] MEDS ORDERED: TETR-59 PO (16:18)
--- NOTE | 2021-06-27 17:10 | NUR ---
Charting by Sathish MONDRAGON reviewed by Haylie Diaz RN
--- NOTE | 2021-06-27 17:37 | NUR ---
Message: [id number] Pt currently running NS @ 20 and refusing to PO fluids. Thank you
[2021-06-27 18:00] VITALS: BP 139/61
[2021-06-27] MEDS: dextrose 5%-normal saline 1,000 ML IV SCH (18:00)
--- NOTE | 2021-06-27 18:25 | NUR ---
Problems reprioritized. Patient report given, questions answered & plan of care reviewed with NICOLAS De La Cruz.
[2021-06-28 03:11] VITALS: BP 130/66
--- NOTE | 2021-06-28 06:12 | NUR ---
Patient in room [facility]. I have received report from NICOLAS De La Cruz and had the opportunity to ask questions and assume patient care.
[2021-06-28 06:13] LABS: BASOPHILS % (AUTO) 0.5 % (0-1); EOSINOPHILS # (AUTO) 0.1 X10'3 (0-0.9); HEMATOCRIT 39.2 % (35.0-45.0); HEMOGLOBIN 12.6 g/dl (12.0-16.0); LYMPHOCYTES # (AUTO) 1.5 X10'3 (1.1-4.8); LYMPHOCYTES % (AUTO) 19.4 % (21-51); MEAN CORPUSCULAR HEMOGLOBIN 26.1 PG (27.0-31.0); MEAN CORPUSCULAR HGB CONC 32.2 g/dL (33.0-36.5); MEAN CORPUSCULAR VOLUME 81.2 FL (78-98); MEAN PLATELET VOLUME 7.2 FL (7.4-10.4); MONOCYTES # (AUTO) 0.9 X10'3 (0-0.9); MONOCYTES % (AUTO) 11.8 % (2-12); NEUTROPHILS % (AUTO) 66.3 % (42-75); PLATELET COUNT 313 X10'3 (140-440); RED BLOOD COUNT 4.83 X10'6 (4.20-5.60); RED CELL DISTRIBUTION WIDTH 15.9 % (11.5-14.5); WHITE BLOOD COUNT 7.6 X10'3 (4.5-11.0)
[2021-06-28 06:28] LABS: ALBUMIN 2.7 G/DL (3.4-5.0); ANION GAP 7 (8-16); BLOOD UREA NITROGEN 7 MG/DL (7-18); BUN/CREATININE RATIO 10.6 (6.6-38.0); CALCIUM 8.1 MG/DL (8.5-10.1); CHLORIDE 103 MMOL/L (99-107); CREATININE 0.66 MG/DL (0.40-0.90); GLUCOSE 222 MG/DL (70-104); POTASSIUM 3.4 MMOL/L (3.5-5.1); SODIUM 139 MMOL/L (135-145); TOTAL CARBON DIOXIDE 29.3 MMOL/L (24-32); eGFR 85 ML/MIN
--- NOTE | 2021-06-28 06:39 | NUR ---
Report given to Mago VALENZUELA
[2021-06-28 08:00] VITALS: BP 141/70
[2021-06-28] MEDS: K and/or MAG REPLACEMENT MC SCH ×2 (08:00→20:16)
[2021-06-28] MEDS: dextrose 5%-normal saline 1,000 ML IV SCH ×2 (08:45→20:40)
[2021-06-28] MEDS: CefTRIAXone/D5W-Rocephin 1gm 50 ML IV SCH (08:50)
[2021-06-28] MEDS: lisinopril 20mg tablet PO SCH (10:03)
[2021-06-28] MEDS ORDERED: glucagon, human recombinant 1mg kit SUBCUT PRN (10:25)
[2021-06-28] MEDS ORDERED: dextrose 50%-water 50ml dispensing syringe IV PRN ×2 (10:25)
[2021-06-28] MEDS ORDERED: MESSAGE TO PHARMACY PO ONE (10:25)
[2021-06-28] MEDS ORDERED: DEXTROSE 15 GM of carb/4 tabs (each vial/BOTTLE has 4 tablets) PO PRN ×2 (10:25)
[2021-06-28] MEDS: pantoprazole 40mg Tablet.DR PO SCH (11:03)
[2021-06-28 11:30] VITALS: BP 151/69
[2021-06-28] MEDS: NUT.TX.GLUC.INTOLER,LAC-FR,SOY (GLUCERNA) 237 ML PO SCH ×3 (13:00→19:00)
[2021-06-28] MEDS: potassium Cl 20 mEq SR tablet PO PRN ×2 (16:59→20:13)
--- NOTE | 2021-06-28 16:59 | NUR ---
20 mEq KDUR administered at 0845, per protocol, for K 3.4, by student RN. Scanned medications were not saved and administration record was lost.
--- NOTE | 2021-06-28 17:05 | NUR ---
pt returned from OR on hospital bed
--- NOTE | 2021-06-28 18:39 | NUR ---
Problems reprioritized. Patient report given, questions answered & plan of care reviewed with NICOLAS Ritchie.
--- NOTE | 2021-06-28 18:42 | NUR ---
REPRT RECEIVED FROM ENIO VALENZUELA
[2021-06-28 19:43] VITALS: BP 148/63
[2021-06-28] MEDS: insulin Lispro (HumaLOG) vial - multi-dose SQ SCH (19:49)
[2021-06-28] MEDS: insulin glargine (Lantus) pen - multi-dose SQ SCH (21:00)
[2021-06-29 00:15] VITALS: BP 151/79
[2021-06-29] MEDS: normal saline 1000ml 1,000 ML IV SCH (00:55)
[2021-06-29 06:04] LABS: ALBUMIN 2.6 G/DL (3.4-5.0); ANION GAP 7 (8-16); BLOOD UREA NITROGEN 4 MG/DL (7-18); BUN/CREATININE RATIO 6.3 (6.6-38.0); CALCIUM 8.1 MG/DL (8.5-10.1); CHLORIDE 104 MMOL/L (99-107); CREATININE 0.63 MG/DL (0.40-0.90); GLUCOSE 262 MG/DL (70-104); POTASSIUM 3.4 MMOL/L (3.5-5.1); SODIUM 138 MMOL/L (135-145); TOTAL CARBON DIOXIDE 27.5 MMOL/L (24-32); eGFR 90 ML/MIN
[2021-06-29 06:08] LABS: BASOPHILS % (AUTO) 0.5 % (0-1); EOSINOPHILS # (AUTO) 0.2 X10'3 (0-0.9); EOSINOPHILS % (AUTO) 1.8 % (0-6); HEMATOCRIT 38.5 % (35.0-45.0); HEMOGLOBIN 12.6 g/dl (12.0-16.0); LYMPHOCYTES % (AUTO) 23.4 % (21-51); MEAN CORPUSCULAR HEMOGLOBIN 26.4 PG (27.0-31.0); MEAN CORPUSCULAR HGB CONC 32.6 g/dL (33.0-36.5); MEAN CORPUSCULAR VOLUME 81.1 FL (78-98); MEAN PLATELET VOLUME 7.6 FL (7.4-10.4); MONOCYTES # (AUTO) 0.9 X10'3 (0-0.9); MONOCYTES % (AUTO) 10.2 % (2-12); NEUTROPHILS # (AUTO) 5.6 X10'3 (1.8-7.7); NEUTROPHILS % (AUTO) 64.1 % (42-75); PLATELET COUNT 306 X10'3 (140-440); RED BLOOD COUNT 4.75 X10'6 (4.20-5.60); WHITE BLOOD COUNT 8.8 X10'3 (4.5-11.0)
--- NOTE | 2021-06-29 06:14 | NUR ---
REPORT GIVEN TO ENIO VALENZUELA.
--- NOTE | 2021-06-29 06:26 | NUR ---
Patient in room [facility]. I have received report from NICOLAS Ritchie and had the opportunity to ask questions and assume patient care.
[2021-06-29 07:00] VITALS: BP 123/55
[2021-06-29] MEDS: levoTHYROXINE 25mcg tablet PO SCH (07:00)
[2021-06-29] MEDS: pantoprazole 40mg Tablet.DR PO SCH ×2 (07:30→08:00)
[2021-06-29] MEDS: K and/or MAG REPLACEMENT MC SCH ×2 (08:00→20:00)
[2021-06-29] MEDS: atorvastatin 10mg tablet PO SCH (08:00)
[2021-06-29] MEDS: donepezil 5mg tablet PO SCH (08:00)
[2021-06-29] MEDS: amLODIPine 5mg tablet PO SCH (08:00)
[2021-06-29] MEDS: lisinopril 20mg tablet PO SCH (08:00)
[2021-06-29] MEDS: venlafaxine XR 75mg capsule (Q24H) PO SCH (08:00)
[2021-06-29] MEDS: magnesium oxide 400mg tablet PO SCH (08:00)
[2021-06-29] MEDS: CefTRIAXone/D5W-Rocephin 1gm 50 ML IV SCH (09:15)
[2021-06-29] MEDS: insulin Lispro (HumaLOG) vial - multi-dose SQ SCH ×3 (09:26→19:20)
[2021-06-29 11:00] VITALS: BP 155/59
[2021-06-29] MEDS: nystatin 500,000 unit/5ML UD oral suspension PO SCH ×2 (13:55→20:39)
[2021-06-29] MEDS: dextrose 5%-normal saline 1,000 ML IV SCH ×2 (13:55→23:20)
[2021-06-29] MEDS: ondansetron/PF 4mg/2ml inj IV PRN ×2 (14:08→20:39)
[2021-06-29] MEDS: potassium Cl 20 mEq SR tablet PO PRN (14:28)
--- NOTE | 2021-06-29 18:17 | NUR ---
Problems reprioritized. Patient report given, questions answered & plan of care reviewed with NICOLAS Quigley.
--- NOTE | 2021-06-29 18:30 | NUR ---
Patient in room [facility]. I have received report from and had the opportunity to ask questions and assume patient care.
[2021-06-29 19:00] VITALS: BP 134/75
[2021-06-29] MEDS: NUT.TX.GLUC.INTOLER,LAC-FR,SOY (GLUCERNA) 237 ML PO SCH (19:16)
[2021-06-29] MEDS: insulin glargine (Lantus) pen - multi-dose SQ SCH (21:26)
[2021-06-30] VITALS: BP 131/81
[2021-06-30] MEDS: dextrose 5%-normal saline 1,000 ML IV SCH (05:59)
[2021-06-30 06:06] LABS: BASOPHILS # (AUTO) 0.1 X10'3 (0-0.2); BASOPHILS % (AUTO) 0.5 % (0-1); EOSINOPHILS # (AUTO) 0.2 X10'3 (0-0.9); EOSINOPHILS % (AUTO) 1.5 % (0-6); HEMATOCRIT 41.4 % (35.0-45.0); HEMOGLOBIN 13.4 g/dl (12.0-16.0); LYMPHOCYTES # (AUTO) 3.2 X10'3 (1.1-4.8); LYMPHOCYTES % (AUTO) 22.6 % (21-51); MEAN CORPUSCULAR HEMOGLOBIN 26.2 PG (27.0-31.0); MEAN CORPUSCULAR HGB CONC 32.5 g/dL (33.0-36.5); MEAN CORPUSCULAR VOLUME 80.7 FL (78-98); MEAN PLATELET VOLUME 8.1 FL (7.4-10.4); MONOCYTES # (AUTO) 1.4 X10'3 (0-0.9); MONOCYTES % (AUTO) 9.9 % (2-12); NEUTROPHILS # (AUTO) 9.2 X10'3 (1.8-7.7); NEUTROPHILS % (AUTO) 65.5 % (42-75); PLATELET COUNT 333 X10'3 (140-440); RED BLOOD COUNT 5.13 X10'6 (4.20-5.60); RED CELL DISTRIBUTION WIDTH 16.1 % (11.5-14.5); WHITE BLOOD COUNT 14.1 X10'3 (4.5-11.0)
[2021-06-30 06:17] LABS: ALBUMIN 2.9 G/DL (3.4-5.0); BLOOD UREA NITROGEN 3 MG/DL (7-18); BUN/CREATININE RATIO 4.8 (6.6-38.0); CALCIUM 8.9 MG/DL (8.5-10.1); CREATININE 0.63 MG/DL (0.40-0.90); GLUCOSE 201 MG/DL (70-104); TOTAL CARBON DIOXIDE 25.7 MMOL/L (24-32); eGFR 90 ML/MIN
--- NOTE | 2021-06-30 06:30 | NUR ---
Problems reprioritized. Patient report given, questions answered & plan of care reviewed with VIVIANE VALENZUELA.
--- NOTE | 2021-06-30 06:52 | NUR ---
Patient in room [facility]. I have received report from HUMBERTO PAUL RN and had the opportunity to ask questions and assume patient care.
[2021-06-30 07:30] VITALS: BP 102/63
[2021-06-30] MEDS: atorvastatin 10mg tablet PO SCH (07:46)
[2021-06-30] MEDS: nystatin 500,000 unit/5ML UD oral suspension PO SCH ×3 (07:46→20:30)
[2021-06-30] MEDS: NUT.TX.GLUC.INTOLER,LAC-FR,SOY (GLUCERNA) 237 ML PO SCH ×3 (07:47→18:00)
[2021-06-30] MEDS: venlafaxine XR 75mg capsule (Q24H) PO SCH (07:47)
[2021-06-30] MEDS: pantoprazole 40mg Tablet.DR PO SCH ×2 (07:47→07:48)
[2021-06-30] MEDS: levoTHYROXINE 25mcg tablet PO SCH (07:47)
[2021-06-30] MEDS: magnesium oxide 400mg tablet PO SCH (07:47)
[2021-06-30] MEDS: donepezil 5mg tablet PO SCH (07:47)
[2021-06-30] MEDS: amLODIPine 5mg tablet PO SCH (07:48)
[2021-06-30] MEDS: lisinopril 20mg tablet PO SCH (07:49)
[2021-06-30] MEDS: K and/or MAG REPLACEMENT MC SCH ×2 (08:00→20:00)
[2021-06-30] MEDS: CefTRIAXone/D5W-Rocephin 1gm 50 ML IV SCH (08:56)
[2021-06-30 11:00] VITALS: BP 134/81
--- NOTE | 2021-06-30 11:13 | NUR ---
Reassessment: Pt continues on Puree/Heart Healthy diet though still mostly refusing meals. Glucerna TID was ordered per MD though pt has only consumed ~12% of them. Recommend d/c ONS if pt continues to refuse/have low PO intake. Pt also noted to have oral thrush. Per MD note, pt family has requested palliative care and CM trying to get palliative care for the patient to be discharged home. Continues to be A&O x1 and confused per documentation. LBM 3/5. Will continue to monitor. Recs: 1. Continue Puree diet as tolerated per IN[facility] DIRECTOR recs, liberalize to Regular 2. Glucerna TID per MD; consider discontinuing if pt continues w/ low PO 3. Bowel care per rx 4. Weekly wts Addendum: 06/30/21 at [address] Amended: Links added.
[2021-06-30] MEDS ORDERED: ondansetron 4mg rapidly disintigrating tab PO PRN (12:45)
[2021-06-30 13:17] LABS: POTASSIUM 3.3 MMOL/L (3.3-5.1)
[2021-06-30] MEDS: cephalexin 500mg capsule PO SCH ×2 (13:31→20:30)
[2021-06-30] MEDS: insulin Lispro (HumaLOG) vial - multi-dose SQ SCH (13:36)
--- NOTE | 2021-06-30 17:50 | NUR ---
AGER ID: [id number] MESSAGE: RE PT DIPTI ANTHONY RM 360A. BLOOD GLUCOSE DOWN TO 83. PLEASE CALL RE ORDERS..IV FLUIDS DC'D THANK YOU, VIVIANE VALENZUELA
--- NOTE | 2021-06-30 17:55 | NUR ---
NOTIFED DR OF DECREASED GLUCOSE LEVEL OF 83, IV FLUIDS OF D5 NS WAS DC'D AND PT DOES NOT EAT. PT ALSO PULLED OUT PIV. PER DR BONNER, DO NOT REPLACE PIV. RECHECK BLOOD GLUCOSE IN 1 HOUR. IF NECESSARY TREAT PER PO HYPOGLYCEMIC PROTOCOL. CONTINUE ACHS BLOOD GLUCOSE CHECKS.
--- NOTE | 2021-06-30 18:21 | NUR ---
Problems reprioritized. Patient report given, questions answered & plan of care reviewed with LYNN VALENZUELA.
[2021-06-30 20:00] VITALS: BP 114/70
[2021-06-30] MEDS: insulin glargine (Lantus) pen - multi-dose SQ SCH (22:00)
[2021-06-30] MEDS ORDERED: potassium Cl 20 mEq SR tablet PO ONE (22:20)
[2021-07-01] VITALS: BP 100/63
[2021-07-01] MEDS: cephalexin 500mg capsule PO SCH ×3 (01:25→14:00)
--- NOTE | 2021-07-01 03:00 | NUR ---
Patient in room [facility]. I have received report from Milton VALENZUELA and had the opportunity to ask questions and assume patient care.
--- NOTE | 2021-07-01 06:32 | NUR ---
Problems reprioritized. Patient report given, questions answered & plan of care reviewed with Linda VALENZUELA.
[2021-07-01 06:33] LABS: BASOPHILS # (AUTO) 0.1 X10'3 (0-0.2); BASOPHILS % (AUTO) 0.7 % (0-1); EOSINOPHILS # (AUTO) 0.3 X10'3 (0-0.9); EOSINOPHILS % (AUTO) 2.2 % (0-6); HEMATOCRIT 39.7 % (35.0-45.0); HEMOGLOBIN 12.9 g/dl (12.0-16.0); LYMPHOCYTES # (AUTO) 3.4 X10'3 (1.1-4.8); LYMPHOCYTES % (AUTO) 29.4 % (21-51); MEAN CORPUSCULAR HEMOGLOBIN 26.3 PG (27.0-31.0); MEAN CORPUSCULAR HGB CONC 32.4 g/dL (33.0-36.5); MEAN CORPUSCULAR VOLUME 81.1 FL (78-98); MEAN PLATELET VOLUME 8.3 FL (7.4-10.4); MONOCYTES # (AUTO) 1.2 X10'3 (0-0.9); MONOCYTES % (AUTO) 10.4 % (2-12); NEUTROPHILS # (AUTO) 6.7 X10'3 (1.8-7.7); NEUTROPHILS % (AUTO) 57.3 % (42-75); PLATELET COUNT 277 X10'3 (140-440); RED CELL DISTRIBUTION WIDTH 16.3 % (11.5-14.5); WHITE BLOOD COUNT 11.6 X10'3 (4.5-11.0)
[2021-07-01 06:37] LABS: ALBUMIN 2.6 G/DL (3.4-5.0); ANION GAP 7 (8-16); BLOOD UREA NITROGEN 5 MG/DL (7-18); BUN/CREATININE RATIO 8.6 (6.6-38.0); CALCIUM 8.9 MG/DL (8.5-10.1); CHLORIDE 104 MMOL/L (99-107); CREATININE 0.58 MG/DL (0.40-0.90); GLUCOSE 158 MG/DL (70-104); POTASSIUM 3.4 MMOL/L (3.5-5.1); SODIUM 137 MMOL/L (135-145); eGFR > 90 ML/MIN
--- NOTE | 2021-07-01 06:45 | NUR ---
Patient in room [facility]. I have received report from Jackeline VALENZUELA and had the opportunity to ask questions and assume patient care.
[2021-07-01 07:19] VITALS: BP 106/62
--- NOTE | 2021-07-01 07:41 | NUR ---
Student Medication Administration: For this medication-pass time frame, all medication were reviewed, dispensed, administered and documented per hospital policy by Nunu JIMÉNEZ. Insulin given and checked by 2 RNs.
[2021-07-01] MEDS: insulin Lispro (HumaLOG) vial - multi-dose SQ SCH ×2 (07:44→14:35)
[2021-07-01] MEDS: donepezil 5mg tablet PO SCH (07:51)
[2021-07-01] MEDS: pantoprazole 40mg Tablet.DR PO SCH (07:51)
[2021-07-01] MEDS: atorvastatin 10mg tablet PO SCH (07:51)
[2021-07-01] MEDS: NUT.TX.GLUC.INTOLER,LAC-FR,SOY (GLUCERNA) 237 ML PO SCH ×2 (07:52→13:00)
[2021-07-01] MEDS: venlafaxine XR 75mg capsule (Q24H) PO SCH (07:52)
[2021-07-01] MEDS: nystatin 500,000 unit/5ML UD oral suspension PO SCH ×2 (07:52→13:00)
[2021-07-01] MEDS: levoTHYROXINE 25mcg tablet PO SCH (07:52)
[2021-07-01] MEDS: magnesium oxide 400mg tablet PO SCH (07:52)
[2021-07-01] MEDS: K and/or MAG REPLACEMENT MC SCH (08:00)
[2021-07-01] MEDS: lisinopril 20mg tablet PO SCH (08:00)
[2021-07-01] MEDS: amLODIPine 5mg tablet PO SCH (08:00)
--- NOTE | 2021-07-01 11:00 | NUR ---
AM antihypertensive medications held at 0800 due to systolic BP 106. aware.
[2021-07-01 12:00] VITALS: BP 109/62
--- NOTE | 2021-07-01 14:38 | NUR ---
Student documentation & Medication Administration:: I have reviewed all interventions, assessments performed and documented by Nunu JIMÉNEZ. For all medication-pass' in the time frame of 3191-9664, all medication were reviewed, dispensed, administered and documented per hospital policy by Nunu JIMÉNEZ.
[2021-07-01] MEDS ORDERED: potassium Cl 20 mEq SR tablet PO PRN ×2 (14:40)
[2021-07-01] MEDS ORDERED: K and/or MAG REPLACEMENT MC SCH (14:40)
[2021-07-01] MEDS ORDERED: magnesium 2GM in 50ml NS 50 ML IV PRN (14:40)
[2021-07-01] MEDS ORDERED: magnesium Cl slow-release 64mg tablet PO PRN (14:40)
[2021-07-01] MEDS ORDERED: magnesium 4gm in 100ml NS 100 ML IV PRN (14:40)
[2021-07-01] MEDS ORDERED: potassium CL 10mEq/100ml bag 100 ML IV PRN (14:40)
[2021-07-01] MEDS ORDERED: nystatin 15 GM powder TP SCH (14:45)
--- NOTE | 2021-07-01 16:04 | NUR ---
Discharged patient home with [facility] transport. All belongings taken. Packet on discharge sent home.
[2021-07-01] MEDS ORDERED: NYST1000 PO (16:06)
== END 2021-07-01 15:37 | disposition hospice, home (50) | DRG 640 ==
LOC: ER 21:09 → ED HOLD 06-27 00:55 → UNDOADMIN 06-27 00:55 → ED HOLD 06-27 00:58 → SUR 3N 06-27 03:00
PROVIDERS: ADMIT Internal Medicine; ATTEND Family Medicine
DX: R62.7 Adult failure to thrive (principal); G93.41 Metabolic encephalopathy; B37.0 Candidal stomatitis; N39.0 Urinary tract infection, site not specified; G30.9 Alzheimer's disease, unspecified; E78.5 Hyperlipidemia, unspecified; Z66 Do not resuscitate; R53.1 Weakness; E03.9 Hypothyroidism, unspecified; F02.80 Dementia in other diseases classified elsewhere, unspecified severity, without behavioral disturbance, psychotic disturbance, mood disturbance, and anxiety; E11.9 Type 2 diabetes mellitus without complications; E78.00 Pure hypercholesterolemia, unspecified; I10 Essential (primary) hypertension; Z68.27 Body mass index [BMI] 27.0-27.9, adult; Z79.899 Other long term (current) drug therapy
CPT/HCPCS: 36415; 80048; 80053; 81001; 81003; 82948; 83036; 83690; 83735; 84132; 84443; 84484; 85025; 87081; 87088; 92508; 92616; 96360; 97161; 97530; 99285; G0378; J0696; J1815; J2405; J3480; J7030; J7042